=== PATIENT | male | born 1955 | race African-American/Black ===

== ENCOUNTER 2023-05-18 14:31 | Emergency (ER) | payer OTHER ==
[2023-05-18] MEDS ORDERED: Lidocaine 1% w/Epinephrine 1:200K 30 ML VIAL ONE (15:57)
[2023-05-18 16:13] LABS: #Monocytes 1.2 10x3/uL (0.0-1.1); %Basophils 0.3 % (0.0-2.0); %Eosinophils 0.3 % (0.0-6.0); %Lymphocytes 12.1 % (18.0-47.0); %Monocytes 10.1 % (0.0-10.0); %Neutrophils 76.7 % (40.0-75.0); Hematocrit 36.9 % (38.8-50.0); Hemoglobin 13.2 g/dL (13.5-17.5); Mean Corpuscular HGB CONC 35.8 g/dL (32.0-36.0); Mean Corpuscular Hemoglobin 30.5 pg (27.0-33.0); Mean Corpuscular Volume 85.2 fl (81.2-95.1); Mean Platelet Volume 8.8 fl (7.4-10.4); Platelet Count 422 10x3/uL (150-450); RBC Distribution Width 10.9 % (11.5-14.5); Red Blood Cell (RBC) Count 4.33 10x6/uL (4.32-5.72); White Blood Cell (WBC) Count 11.7 10x3/uL (3.5-10.5)
[2023-05-18 16:38] LABS: ALT (SGPT) 14 U/L (8-55); AST (SGOT) 17 U/L (5-34); Albumin 3.9 g/dL (3.4-4.8); Alkaline Phosphatase 89 U/L (40-110); Anion Gap 15 mmol/L (10-20); BUN (Urea Nitrogen) 16 mg/dL (8.4-25.7); Bilirubin, Total 0.6 mg/dL (0.2-1.2); Calc. Creatinine Clearance 0 mL/min (70-130); Calcium 9.3 mg/dL (7.8-10.44); Carbon Dioxide 25 mmol/L (23-31); Chloride 94 mmol/L (98-107); Estimated GFR 69; Globulin 3.7 g/dL (2.4-3.5); Glucose 263 mg/dL (80-115); Potassium 4.5 mmol/L (3.5-5.1); Protein, Total 7.6 g/dL (5.8-8.1); Sodium 129 mmol/L (136-145)
== END 2023-05-18 17:10 | disposition home or self-care (01) ==
LOC: CSHERS 14:31
DX: L02.416 Cutaneous abscess of left lower limb (principal)
CPT/HCPCS: 10060; 36415; 80053; 85025; 87070; 87077; 87186; 87205

== ENCOUNTER 2024-09-09 20:39 | Emergency (ER) | payer MEDICARE, OTHER ==
[2024-09-09] MEDS ORDERED: Aspirin Chewable 81 MG TAB ONE (20:46)
[2024-09-09] MEDS ORDERED: Heparin 25,000 units/D5W 500 ML ONE (20:58)
[2024-09-09] MEDS ORDERED: Heparin 10,000 UNITS/ 10 ML VIAL ONE (20:58)
[2024-09-09 21:16] LABS: #Basophils 0.03 10x3/uL (0.0-0.2); #Monocytes 0.42 10x3/uL (0.0-1.1); #Neutrophils 7.84 10x3/uL (1.5-8.4); %Basophils 0.3 % (0.0-2.0); %Lymphocytes 8.8 % (18.0-47.0); %Monocytes 4.6 % (0.0-10.0); %Neutrophils 86.1 % (40.0-75.0); Hemoglobin 15.9 g/dL (13.5-17.5); Mean Corpuscular HGB CONC 35.3 g/dL (32.0-36.0); Mean Corpuscular Hemoglobin 31.7 pg (27.0-33.0); Mean Corpuscular Volume 89.8 fL (81.2-95.1); Platelet Count 271 10x3/uL (150-450); RBC Distribution Width 11.6 % (11.5-14.5); Red Blood Cell (RBC) Count 5.01 10x6/uL (4.32-5.72); White Blood Cell (WBC) Count 9.1 10x3/uL (3.5-10.5)
[2024-09-09 21:25] LABS: INR-International Normal Ratio 1.1; PTT 21.8 sec (22.0-33.0); Prothrombin Time 11.5 sec (9.5-12.1)
[2024-09-09 21:29] LABS: ALT (SGPT) 33 U/L (8-55); AST (SGOT) 87 U/L (5-34); Albumin 4.4 g/dL (3.4-4.8); Alkaline Phosphatase 88 U/L (40-110); Anion Gap 23 mmol/L (10-20); BUN (Urea Nitrogen) 17 mg/dL (8.4-25.7); Bilirubin, Total 0.5 mg/dL (0.2-1.2); Calc. Creatinine Clearance 0 mL/min (70-130); Calcium 10.2 mg/dL (7.8-10.44); Carbon Dioxide 17 mmol/L (23-31); Chloride 107 mmol/L (98-107); Estimated GFR 63; Globulin 3.9 g/dL (2.4-3.5); Glucose 276 mg/dL (80-115); Potassium 4.9 mmol/L (3.5-5.1); Protein, Total 8.3 g/dL (5.8-8.1); Sodium 142 mmol/L (136-145)
[2024-09-09 21:43] LABS: Critical Call Chem Troponin I NUR.AEB@2142/1/3/25/JG2; Troponin I 33.316 ng/mL (< 0.028)
== END 2024-09-09 21:31 | disposition short-term general hospital (02) ==
LOC: CSHERS 20:39
DX: I21.9 Acute myocardial infarction, unspecified (principal); I10 Essential (primary) hypertension; E11.9 Type 2 diabetes mellitus without complications; E78.00 Pure hypercholesterolemia, unspecified; Z79.84 Long term (current) use of oral hypoglycemic drugs; Z79.82 Long term (current) use of aspirin; Z79.899 Other long term (current) drug therapy
CPT/HCPCS: 71045; 80053; 84484; 85025; 85610; 85730; 93005; 94760; 96374; J1644